=== PATIENT | female | born 1945 | race Two or more races ===

== ENCOUNTER 2019-07-05 13:23 | Emergency (ER) | payer OTHER ==
[~2019-07-05] VITALS: Ht 147.3 cm; Wt 59.4 kg
[2019-07-05] MEDS ORDERED: ATIVAN2 M1 (13:44)
[2019-07-05] MEDS ORDERED: TOPROL XL100 M1 (13:45)
[2019-07-05] MEDS ORDERED: COZAAR100 MG (13:45)
[2019-07-05] MEDS ORDERED: ACID CONTROLLER20 MG (13:45)
[2019-07-05] MEDS ORDERED: PLAVIX75 MG (13:46)
[2019-07-05] MEDS ORDERED: ASPIR 8181 MG (13:46)
[2019-07-05] MEDS ORDERED: NORVASC10 MG (13:46)
[2019-07-05] MEDS ORDERED: BIDIL TABLET1 EACH (13:46)
[2019-07-05] MEDS ORDERED: LIPITOR40 M1 (13:47)
[2019-07-05] MEDS ORDERED: NAMENDA10 MG (13:47)
[2019-07-05] MEDS ORDERED: ULTRACET PO (15:27)
[2019-07-10] MEDS ORDERED: FENOFIBRATE50 MG PO (12:26)
[2019-07-10] MEDS ORDERED: VITAMIN C100 MG PO (12:26)
== END 2019-07-05 15:59 | disposition home or self-care (01) ==
LOC: ER 13:23
DX: S42.251A Displaced fracture of greater tuberosity of right humerus, initial encounter for closed fracture (principal); W18.39XA Other fall on same level, initial encounter; Y93.89 Activity, other specified; Y92.89 Other specified places as the place of occurrence of the external cause; Y99.8 Other external cause status

== ENCOUNTER → 2019-07-11 | Day surgery (SDC) | payer OTHER ==
[~2019-07-11] VITALS: Ht 165.1 cm; Wt 59.0 kg
[~2019-07-11] MED LIST: ACID CONTROLLER20 MG; ASPIR 8181 MG; ATIVAN2 M1; BIDIL TABLET1 EACH; CEFADROXIL500 MG PO; COZAAR100 MG; DUI500 PO; FENOFIBRATE50 MG PO; LIPITOR40 M1; NAMENDA10 MG; NORVASC10 MG; PERCOCET 5-3251 EACH PO; PLAVIX75 MG; TOPROL XL100 M1; ULTRACET PO; VITAMIN C100 MG PO
== END | disposition home or self-care (01) ==
LOC: CIR.AMB 06:00
DX: S42.291A Other displaced fracture of upper end of right humerus, initial encounter for closed fracture (principal); M80.011A Age-related osteoporosis with current pathological fracture, right shoulder, initial encounter for fracture
CPT/HCPCS: 23616; 20902; C1776

== ENCOUNTER 2020-08-26 17:58 | Inpatient (IN) | payer OTHER ==
[~2020-08-26] VITALS: Ht 165.1 cm; Wt 62.1 kg
[2020-08-26] MEDS ORDERED: CARDURA XL4 MG PO (18:28)
[2020-08-26] MEDS ORDERED: LEXAPRO5 MG PO (18:29)
--- NOTE | 2020-08-26 18:31 | NUR ---
SE RECIBE PTE AMBULANDO, ALERTA Y ORIENTAD X3, ACOMPANDA DE FAMILIAR, QUIEN REFIERE GRIFFIN PRESENTADO KANDICE CAIDA EN SI HOGAR HACE 3 MOYER. PTE INDICA QUE RECIBIO GOLPE EN AREA DE PEACE L+ Y BRAZO L+. 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 SE UBICA EN AREA DE ESPERA PARA EVALUACION PEDIATRICA.
--- NOTE | 2020-08-26 19:23 | NUR ---
PACIENTE ALERTA Y ORIENTADA EN HAL HEMALATHA ESFERAS. SE ORIENTA A PACIENTE SOBRE TX MEDICO, RFIERE ENTENDER. SE ADMINISTRA MEDICAMENTOS TITA ORDEN MEDICA.
--- NOTE | 2020-08-26 23:36 | NUR ---
SE UBICA PTE EN RUBENS CON BARANDAS ELEVADAS,SE ORIENTA SOBRE TX MEDICO Y REFIERE ENTENDER.SE LE EXTRAEN MUESTRAS BAJO MEDIDAS ASEPTICAS.SE CANALIZA Y SE ADMINISTRA MEDICAMENTO TITA ORDEN MEDICA.SE REALIZA EKG,SE ORIENTA SOBRE DIETA NPO.PENDIENTE A EVALUCION DE ORTOPEDA.
--- NOTE | 2020-08-27 07:29 | NUR ---
SE RECIBE PACIENTE ALERTA Y ORIENTADA. SE OBSERVA CON HEPARIN LOCK. SE OBSERVA ACOSTADA, CON CAMA A NIVEL BAJO Y BARANDAS ELEVADAS Y CON BASURTO DE IDENTIFICACION. SE MANTIENE BAJO OBSERVACION POR CAMBIOS. PENDIENTE CONSULTA CON DR. BARTON.
[2020-08-27] MEDS ORDERED: FAMOTIDINE20 MG (15:38)
[2020-08-27] MEDS ORDERED: ISOSORBIDE MONO20 MG (15:38)
[2020-08-27] MEDS ORDERED: ISOSORBIDE DINI20 MG (15:38)
[2020-08-27] MEDS ORDERED: ST. JOSEPH ASPI81 M2 (15:38)
[2020-08-27] MEDS ORDERED: LISINOPRIL20 MG (15:38)
[2020-08-27] MEDS ORDERED: IBANDRONATE SO150 MG (15:39)
[2020-08-28] MEDS ORDERED: DUI500 PO (07:57)
[2020-08-28] MEDS ORDERED: PERCOCET 5-3251 EACH PO (07:57)
== END 2020-08-30 17:24 | disposition home or self-care (01) | DRG 512 ==
LOC: ER 17:58 → SURG 08-27 07:49 → SEC-K 08-27 07:49 → O/R 08-27 14:21 → SURG 08-27 17:38 → O/R 08-29 11:57 → SURG 08-29 12:31
PROVIDERS: ADMIT Orthopaedic Surgery; ATTEND Orthopaedic Surgery
PROC: 0PSJ04Z Reposition Left Radius with Internal Fixation Device, Open Approach (ICD-10-PCS; principal; 2020-08-27 16:30)
DX: S52.362A Displaced segmental fracture of shaft of radius, left arm, initial encounter for closed fracture (principal); I10 Essential (primary) hypertension; W18.30XA Fall on same level, unspecified, initial encounter; F03.90 Unspecified dementia, unspecified severity, without behavioral disturbance, psychotic disturbance, mood disturbance, and anxiety; Z20.822 Contact with and (suspected) exposure to COVID-19

== ENCOUNTER 2021-10-23 16:45 | Emergency (ER) | payer OTHER ==
[~2021-10-23] VITALS: Ht 167.6 cm; Wt 62.6 kg
[~2021-10-23 16:45] MED LIST changes: +CARDURA XL4 MG PO; +FAMOTIDINE20 MG; +IBANDRONATE SO150 MG; +ISOSORBIDE DINI20 MG; +ISOSORBIDE MONO20 MG; +LEXAPRO5 MG PO; +LISINOPRIL20 MG; +ST. JOSEPH ASPI81 M2
[2021-10-23] MEDS ORDERED: PERCOCET 5-3251 EACH PO (21:47)
== END 2021-10-23 21:59 | disposition home or self-care (01) ==
LOC: ER 16:45
DX: S72.402A Unspecified fracture of lower end of left femur, initial encounter for closed fracture (principal); F32.A Depression, unspecified; I25.10 Atherosclerotic heart disease of native coronary artery without angina pectoris; I10 Essential (primary) hypertension; M97.12XA Periprosthetic fracture around internal prosthetic left knee joint, initial encounter; W08.XXXA Fall from other furniture, initial encounter; Y93.9 Activity, unspecified; Y92.019 Unspecified place in single-family (private) house as the place of occurrence of the external cause

== ENCOUNTER 2022-03-06 08:02 | Outpatient (CLI) | payer OTHER | END 2022-03-06 08:08 | disposition home or self-care (01) | LOC: TOM 08:02 | PROVIDERS: ATTEND Internal Medicine Gastroenterology | DX: K92.1 Melena (principal) ==

== ENCOUNTER 2022-03-06 12:43 | Outpatient (CLI) | payer OTHER | END 2022-03-06 12:45 | disposition home or self-care (01) | LOC: NUCLEAR 12:43 | PROVIDERS: ATTEND Internal Medicine | DX: M19.90 Unspecified osteoarthritis, unspecified site (principal) ==

== ENCOUNTER 2022-03-25 14:29 | Outpatient (CLI) | payer OTHER | END 2022-03-25 14:33 | disposition home or self-care (01) | LOC: LAB 14:29 | PROVIDERS: ATTEND Internal Medicine Gastroenterology | DX: D60.0 Chronic acquired pure red cell aplasia (principal) ==

== ENCOUNTER 2022-04-03 06:25 | Outpatient (CLI) | payer OTHER | END 2022-04-03 06:27 | disposition home or self-care (01) | LOC: LAB 06:25 | PROVIDERS: ATTEND Internal Medicine | DX: E53.8 Deficiency of other specified B group vitamins (principal); E55.9 Vitamin D deficiency, unspecified; Z12.11 Encounter for screening for malignant neoplasm of colon; E03.4 Atrophy of thyroid (acquired); E11.69 Type 2 diabetes mellitus with other specified complication; I11.9 Hypertensive heart disease without heart failure; D64.9 Anemia, unspecified; R80.8 Other proteinuria ==

== ENCOUNTER 2022-04-03 07:03 | Outpatient (CLI) | payer OTHER | END 2022-04-03 07:09 | disposition home or self-care (01) | LOC: RX STUDY 07:03 | PROVIDERS: ATTEND Internal Medicine Gastroenterology | DX: Z98.890 Other specified postprocedural states (principal) ==

== ENCOUNTER 2022-04-23 16:01 | Outpatient (CLI) | payer OTHER | END 2022-04-23 16:06 | disposition home or self-care (01) | LOC: LAB 16:01 | PROVIDERS: ATTEND Internal Medicine | DX: E53.8 Deficiency of other specified B group vitamins (principal); E55.9 Vitamin D deficiency, unspecified; Z12.11 Encounter for screening for malignant neoplasm of colon; E03.4 Atrophy of thyroid (acquired); E11.69 Type 2 diabetes mellitus with other specified complication; I11.9 Hypertensive heart disease without heart failure; D64.9 Anemia, unspecified; R80.8 Other proteinuria ==

== ENCOUNTER 2023-12-07 16:18 | Emergency (ER) | payer OTHER ==
[~2023-12-07] VITALS: Ht 152.4 cm; Wt 63.5 kg
[2023-12-07] MEDS ORDERED: KETOROLAC TROMETHAMINE 30 MG VIAL IM STA (17:58)
[2023-12-07] MEDS ORDERED: KETOROLAC TROMETHAMINE 30 MG VIAL ONE (18:09)
[2023-12-07 18:42] LABS: HEMATOCRIT 31.1 % (36.0-45.00); MEAN CELL VOLUME 85.7 fL (80.00-100.00); MEAN CORPUSCULAR HEMOGLOBIN 27.5 pg (27.00-32.0); MEAN CORPUSCULAR HGB CONC 32.1 g/dl (32.0-36.0); PLATELET COUNT 242 K/uL (150-450); RED BLOOD COUNT 3.62 M/uL (4.00-6.00)
[2023-12-07 18:46] LABS: RED CELL DISTRIBUTION WIDTH 18.9 % (11.5-14.5)
[2023-12-07 18:59] LABS: PROTHROMBIN TIME 10.9 SECONDS (9.0-11.5)
[2023-12-07 19:04] LABS: ALBUMIN 3.4 gm/dL (3.4-5.0); BILIRUBIN TOTAL 0.41 mg/dL (0.3-1.2); CALCIUM 9.7 mg/dL (8.5-10.1); CREATININE SERUM 1.9 mg/dL (0.55-1.02); GFR 25.5; GLOBULINA 4.5 G/DL (2.4-3.5); POTASSIUM 3.4 mEq/L (3.5-5.1); TOTAL PROTEIN 7.9 gm/dL (6.4-8.2)
[2023-12-07] MEDS ORDERED: RIVAROXABAN 15 MG TABLET PO STA (20:16)
[2023-12-07] MEDS ORDERED: ACETAMINOPHEN 500 MG GEL..CAP PO STA (23:49)
[2023-12-07] MEDS ORDERED: ACETAMINOPHEN 500 MG GEL..CAP PO ONE (23:59)
[2023-12-08] MEDS ORDERED: KETOROLAC TROMETHAMINE 30 MG VIAL IV STA (01:16)
[2023-12-08] MEDS ORDERED: KETOROLAC TROMETHAMINE 30 MG VIAL ONE ×2 (01:26→09:31)
== END 2023-12-08 10:30 | disposition home or self-care (01) ==
LOC: ER 16:20
PROVIDERS: General Practice
DX: M79.604 Pain in right leg (principal); I10 Essential (primary) hypertension
CPT/HCPCS: 36415; 93971; 96365; 96372; 99284; J1885 ×2